=== PATIENT | female | born 1970 | race Hispanic/Latino ===

== ENCOUNTER 2023-03-22 08:28 | Outpatient (CLI) | payer BC ==
[2023-03-22] MEDS ORDERED: Magnevist 469MG/ML 20 ML VIAL ONE (12:26)
== END 2023-03-22 08:29 | disposition home or self-care (01) ==
LOC: CSHMRI 08:28
PROVIDERS: ATTEND Otolaryngology Plastic Surgery within the Head & Neck
DX: H81.20 Vestibular neuronitis, unspecified ear (principal); R90.82 White matter disease, unspecified
CPT/HCPCS: 70553